=== PATIENT | female | born 1985 ===

== ENCOUNTER → 2025-01-25 | Outpatient (REF) | payer OTHER ==
[2025-01-25 17:12] LABS: IRON (FE) 108 UG/DL (50-170); PERCENT SATURATION 35.4 % (13.2-45.0)
[2025-01-25 17:13] LABS: ALT/SGPT 30 U/L (7.0-40); AST/SGOT 18 U/L (<34); CALCIUM LEVEL 8.8 MG/DL (8.5-10.1); CARBON DIOXIDE LEVEL 25 MMOL/L (20-31); CHLORIDE LEVEL 107 MMOL/L (98-107); CREATININE FOR GFR 0.76 MG/DL (0.55-1.30); GLOMERULAR FILTRATION RATE > 90.0 (>60); POTASSIUM SERUM 4.3 MMOL/L (3.5-5.1); SODIUM LEVEL 142 MMOL/L (136-145)
[2025-01-25 17:16] LABS: BASO # 0.0 10^3/uL (0.0-0.2); BASO % 0.8 % (0.0-1.0); EOS # 0.2 10^3/uL (0.0-0.5); EOS % 3.7 % (0.0-3.0); FREE T4 0.99 NG/DL (0.89-1.76); LYMPH # 2.1 10^3/uL (1.5-5.0); LYMPH % 42.1 % (24.0-44.0); MONO # 0.3 10^3/uL (0.0-0.8); MONO % 4.9 % (2.0-8.0); NEUTROPHILS # 2.5 10^3/uL (1.5-8.5); NEUTROPHILS % 48.3 % (36.0-66.0); PLATELET COUNT, AUTOMATED 177 10^3/uL (150-450)
[2025-01-25 17:22] LABS: ESTIMATED AVERAGE GLUCOSE 97.0 MG/DL (60-110)
== END ==
LOC: M LAB REF 16:26
PROVIDERS: ATTEND Student in an Organized Health Care Education/Training Program
DX: Z86.2 Personal history of diseases of the blood and blood-forming organs and certain disorders involving the immune mechanism (principal); R00.2 Palpitations; E28.2 Polycystic ovarian syndrome